=== PATIENT | female | born 1990 | race African-American/Black ===

== ENCOUNTER 2016-11-28 17:34 | Emergency (ER) | payer SELFPAY ==
[~2016-11-28] VITALS: Ht 165.1 cm; Wt 54.5 kg
[2016-11-28] MEDS ORDERED: IBUPROFEN 600 MG TABLET PO ONE (18:00)
[2016-11-28 19:48] VITALS: BP 141/98
== END 2016-11-28 19:50 | disposition home or self-care (01) ==
LOC: EMS 17:36
DX: S16.1XXA Strain of muscle, fascia and tendon at neck level, initial encounter (principal); S06.0X0A Concussion without loss of consciousness, initial encounter; S09.90XA Unspecified injury of head, initial encounter; V49.40XA Driver injured in collision with unspecified motor vehicles in traffic accident, initial encounter; Y93.89 Activity, other specified; Y92.89 Other specified places as the place of occurrence of the external cause; Y99.8 Other external cause status
CPT/HCPCS: 70450; 72125; 81025; 99284